=== PATIENT | male | born 1945 | race Caucasian/White ===

== ENCOUNTER 2020-03-25 15:41 | Inpatient (IN) | payer MEDICARE ==
[~2020-03-25] VITALS: Ht 188 cm; Wt 77.3 kg
[~2020-03-25 15:41] MED LIST: NEW ENERGY1 CAP PO; NO HOME MEDICATIONS
[2020-03-25 16:11] LABS: BASO % 0.2 % (0.0-2.0); EOS % 0.3 % (0-4.0); GRAN % 84.2 % (42.2-75.2); HEMATOCRIT 49.9 % (42.0-52.0); HEMOGLOBIN 16.1 g/dl (13.5-18.0); LYMPH # 1.3 (1.2-3.4); LYMPH % 8.2 % (20.0-51.0); MEAN CELL VOLUME 91 fl (80.0-100.0); MEAN CORPUSCULAR HEMOGLOBIN 29 pg (27.0-31.0); MEAN CORPUSCULAR HGB CONC 32 g/dl (33.0-37.0); MEAN PLATELET VOLUME 11.9 fl (7.4-10.4); MONO % 6.6 % (1.7-9.3); PLATELET COUNT 284 K/mm3 (130-400); REDCELL DISTRIBUTION WIDTH-CV 13.7 % (11.5-14.5)
[2020-03-25 16:39] LABS: ALBUMIN 4.4 gm/dL (3.5-5.0); BILIRUBIN,TOTAL 0.8 mg/dL (0.0-1.0); CALCIUM 10.1 mg/dL (8.4-10.2); CREATININE, serum 1.26 (0.66-1.25); POTASSIUM 4.6 mmol/L (3.4-5.0); TOTAL PROTEIN 8.6 gm/dL (6.4-8.2)
[2020-03-25 18:31] LABS: COLLECTION METHOD CLEAN CATCH
[2020-03-25 18:39] LABS: MUCOUS Present /lpf; PH 5 (5-8); SQUAMOUS EPITHELIAL 0-2 /hpf; URINE APPEARANCE Cloudy; URINE BACTERIA Rare /hpf; URINE BILIRUBIN Negative (NEGATIVE); URINE BLOOD 2+ (NEGATIVE); URINE COLOR Yellow; URINE GLUCOSE Negative (NEGATIVE); URINE KETONE 1+ (NEGATIVE); URINE LEUKOCYTE ESTERASE 2+ (NEGATIVE); URINE NITRATE Positive (NEGATIVE); URINE PROTEIN(semi-quant) 1+ (NEGATIVE); URINE UROBILINOGEN Negative (NEGATIVE)
[2020-03-25 20:15] LABS: INR 1.1 (0.8-3.0); PROTHROMBIN TIME 12.1 SECONDS (9.7-12.8)
--- NOTE | 2020-03-25 20:34 | NUR ---
RECEIVED REPORT FROM ED NURSELATOYA. WAITING FOR ROOM 344 TO BE CLEANED FOR PATIENT TO BE ADMIT TO ROOM.
--- NOTE | 2020-03-25 21:37 | NUR ---
RECEIVED PATIENT TO ROOM 344 VIA ED CART WITH ED PCT ACCOMPANYING PATIENT. PATIENT TRANSFERED FROM CART TO HOSP BED, TOLERATED TRANSFER WITH NO COMPLAINTS OF PAIN. DENIES CHEST PAIN/SHORTNESS OF BREATH AT THIS TIME. REPORT PAIN TO LEFT HIP IN ER, OBSERVED ABRASION WITH FLUID FILLED BLISTER TO LEFT INNER KNEE, PINK DISCOLORING TO R CONFUCIANIST AREA,
[2020-03-25 21:45] VITALS: BP 146/81; PULSE 89; TEMP 97.8
[2020-03-26 00:24] VITALS: BP 125/50; PULSE 92; TEMP 97.3
--- NOTE | 2020-03-26 01:24 | NUR ---
Patient alert and partially oriented. Patient c/o pain 3-4 out of 10 to his left hip and left knee area. PRN Morphine given at 22:40 pm. Campoverde catheter in place and draining dark tea color cloudy urine. Oriented patient to the room. Bed alarms on, Call light within reach. Patient denies any needs at this time.
[2020-03-26 04:54] VITALS: BP 117/56; PULSE 90; TEMP 97.6
--- NOTE | 2020-03-26 06:11 | NUR ---
Patient slept well over the night. No acute distress noted. Patient reports left hip and left knee pain 3/10 this morning. Denies need for pain meds at this time. IVF infusing well. Campoverde catheter draining yellow urine. Call light within reach. Will give report to day shift nurse.
[2020-03-26 07:08] VITALS: BP 128/69; PULSE 90; TEMP 98
[2020-03-26 07:10] LABS: BASO % 0.3 % (0.0-2.0); EOS # 0.1 (0.0-0.7); EOS % 0.5 % (0-4.0); GRAN # 8.5 (1.4-6.5); GRAN % 74.8 % (42.2-75.2); HEMATOCRIT 38.1 % (42.0-52.0); LYMPH # 1.5 (1.2-3.4); MEAN CELL VOLUME 89 fl (80.0-100.0); MEAN CORPUSCULAR HEMOGLOBIN 29 pg (27.0-31.0); MEAN CORPUSCULAR HGB CONC 33 g/dl (33.0-37.0); MEAN PLATELET VOLUME 12.6 fl (7.4-10.4); MONO # 1.3 (0.1-0.6); PLATELET COUNT 208 K/mm3 (130-400); RED BLOOD COUNT 4.29 M/mm3 (4.20-5.60); REDCELL DISTRIBUTION WIDTH-CV 13.8 % (11.5-14.5)
[2020-03-26 07:22] LABS: ALBUMIN 3.1 gm/dL (3.5-5.0); BILIRUBIN,TOTAL 0.6 mg/dL (0.0-1.0); CALCIUM 8.2 mg/dL (8.4-10.2); CREATININE, serum 1.08 (0.66-1.25); POTASSIUM 4.1 mmol/L (3.4-5.0); TOTAL PROTEIN 6.1 gm/dL (6.4-8.2)
[2020-03-26 07:30] LABS: HEMOGLOBIN 12.5 g/dl (13.5-18.0)
--- NOTE | 2020-03-26 11:08 | NUR ---
JOSE staffed with the patient RN. The patient reports that it would be better to contact the patient's daughter for intake. JOSE then contacted the patient's daughter, Ilsa (ph#[phone]), to discuss discharge plan. Ilsa lives in [place]. The patient lives alone in [place]. lIsa reports that the patient has a cane and walker, but that he refuses to use them. EMR lists the patient's PCP as Dr. Dwayne Concepcion and that he receives his medications from [facility]. Ilsa reports that the patient is extremely resistant to go doctor appointments and that it has been a long time since he has seen his PCP. Ilsa reports that the patient does not have a DPOA-HC. She states that he is not and has four children: Ilsa, Saadia (ph#[phone], [place]), Jason ([place] and Chris ([place]). Ilsa states that Saadia is on her way to [place] and should arrive tomorrow. The patient has a left hip fracture and is to have surgery tomorrow. JOSE informed Ilsa how post-acute rehab will be recommended upon discharge. Ilsa verbalized understanding and was in agreement to rehab. JOSE informed her of the facilities in [place]. Ilsa was agreeable for JOSE to send referrals to the [place] facilities. She would like to contact them first and have her sister check them out before making a decision on preference. JOSE provided Ilsa with the phone numbers to the [place] facilities. JOSE contacted and faxed a referral to [facility], [facility], and [facility]. Awaiting screens.
--- NOTE | 2020-03-26 11:47 | NUR ---
Betty, at [facility], reports that they are able to accept the patient.
[2020-03-26 11:56] VITALS: BP 113/60; PULSE 82; TEMP 97.8
[2020-03-26 16:59] VITALS: BP 129/62; PULSE 80; TEMP 98.6
[2020-03-26 20:15] VITALS: BP 124/55; PULSE 75; TEMP 97.5
--- NOTE | 2020-03-26 21:00 | NUR ---
PT IN BED, WATCHING TV. DENIES PAIN ONLY WITH MOVEMENT. IS TO BE NPO AFTER MIDNIGHT FOR SURGERY 03/27/20. HAS IVF INFUSING TO LEFT HAND WITHOUT REDNESS OR SWELLING. METZGER CATHETER TO BSD WITH CLOUDY URINE. WILL MONITOR FOR CHANGES.
[2020-03-27] VITALS (10 sets, daily range): BP systolic 126–152; BP diastolic 42–66; PULSE 76–90; TEMP 97.9–98.4
[2020-03-27 07:11] LABS: BASO % 0.4 % (0.0-2.0); EOS # 0.2 (0.0-0.7); EOS % 2.3 % (0-4.0); GRAN # 7.2 (1.4-6.5); GRAN % 71.7 % (42.2-75.2); HEMOGLOBIN 11.1 g/dl (13.5-18.0); LYMPH # 1.5 (1.2-3.4); LYMPH % 14.6 % (20.0-51.0); MEAN CELL VOLUME 93 fl (80.0-100.0); MEAN CORPUSCULAR HEMOGLOBIN 29 pg (27.0-31.0); MEAN CORPUSCULAR HGB CONC 32 g/dl (33.0-37.0); MEAN PLATELET VOLUME 12.2 fl (7.4-10.4); MONO % 10.2 % (1.7-9.3); PLATELET COUNT 155 K/mm3 (130-400); RED BLOOD COUNT 3.78 M/mm3 (4.20-5.60); REDCELL DISTRIBUTION WIDTH-CV 13.8 % (11.5-14.5)
[2020-03-27 07:13] LABS: HEMATOCRIT 35.1 % (42.0-52.0)
[2020-03-27 07:22] LABS: CALCIUM 7.9 mg/dL (8.4-10.2); CREATININE, serum 0.87 (0.66-1.25); POTASSIUM 3.8 mmol/L (3.4-5.0)
--- NOTE | 2020-03-27 08:45 | NUR ---
MORNING SHIFT ASSESSMENT COMPLETED. PATIENT DENIES PAIN AT THIS TIME. STUDENT NURSE GIVING BED BATH, PRE-OP SCRUB AND CATHETER CARE. CALL LIGHT WITHIN REACH. NO OTHER NEEDS AT THIS TIME. PATIENT NPO FOR SURGERY.
--- NOTE | 2020-03-27 09:45 | NUR ---
Cassius, at [facility], reports that they are able to accept the patient.
--- NOTE | 2020-03-27 10:05 | NUR ---
THIS NURSE SPOKE WITH PATIENTS DAUGHTER KEITH REGARDING THE PATIENTS PROVEDURE HE IS HAVING TODAY. DAUGHTER HAD SOME ADDITIONAL QUESTIONS THAT NURSING STAFF WAS UNABLE TO ANSWER. CALLED AND NOTIFIED AND GIVEN DAUGHTERS NUMBER.
--- NOTE | 2020-03-27 10:16 | NUR ---
DOUBLE NURSE PHONE CONSENT OBTAINED BY THIS NURSE AND MEKHI DAY FROM PATIENTS DAUGHTER KEITH FAY FOR LEFT HIP HEMIARTHROPLASTY. CONSENT FORM PLACED ON PATIENTS CHART.
--- NOTE | 2020-03-27 13:20 | NUR ---
PATIENT TAKEN BY MISAEL TO [facility]. WILL WAIT FOR PATIENT ARRIVAL BACK TO ROOM 344 POST-OP.
--- NOTE | 2020-03-27 14:47 | NUR ---
JOSE staffed with the hospitalist. The patient is having surgery today and if he is doing well, he could be able to d/c on Monday. JOSE notified and faxed updates to [facility], and [facility]. JOSE contacted and updated the patient's daughter, Ilsa, of tentative d/c date and of [facility] acceptance. Ilsa reports that she will update her siblings and talk to them to see who their preference is. She reports that her sister, Saadia, got delayed in [place] and will be flying into [facility]. She will arrive in [place] tomorrow. JOSE informed the hospitalist that a new COVID test will need to be ordered. JOSE to continue to follow.
--- NOTE | 2020-03-27 16:45 | NUR ---
PATIENT ARRIVED BACK TO ROOM 344 VIA BED POST-OP FROM PACU. PATIENT SETTELED INTO ROOM. PATIENT AWAKE BUT DROWSY. LEFT HIP AQUACEL CD&I. LEFT MEDIAL KNEE BLISTER COVERED WITH XEROFORM, GAUZE AND TEGADERM, DRESSING IS CD&I. POSITIVE PEDAL PULSES EQUAL BILATERALLY. MUSTAPHA HOSE AND SCD'S TO BLE. ABDUCTOR PILLOW IN PLACE BETWEEN KNEES. POST-OP VSS. WILL CONTINUE TO MONITOR.
--- NOTE | 2020-03-27 19:05 | NUR ---
PATIENT ASLEEP RESTING IN BED. POST-OP VSS. BEDSIDE REPORT GIVEN TO MEKHI BHAKTA.
--- NOTE | 2020-03-27 21:30 | NUR ---
Pt. laying in bed at this time. Pt. is a&OX3, assessment complete. Pt. denies pain or other needs. Dressing to lt. hip CDI. Call light within reach.
[2020-03-28] VITALS (7 sets, daily range): BP systolic 108–136; BP diastolic 48–66; PULSE 63–90; TEMP 97–98.6
--- NOTE | 2020-03-28 07:02 | NUR ---
Lying in bed with eyes open. Alert, oriented only to self. Denies pain. Bruising noted to bialt arms. Aquacel CDI to left hip. Campoverde to dependent drainage with clear yellow urine. Patient says that he is hungry. JAIR Gonzales, in and assists patient in ordering breakfast. Denies additional needs.
[2020-03-28 07:59] LABS: BASO # 0.1 (0.0-0.2); BASO % 0.4 % (0.0-2.0); EOS # 0.1 (0.0-0.7); GRAN # 9.9 (1.4-6.5); GRAN % 79.7 % (42.2-75.2); HEMOGLOBIN 10.2 g/dl (13.5-18.0); MEAN CELL VOLUME 92 fl (80.0-100.0); MEAN CORPUSCULAR HEMOGLOBIN 30 pg (27.0-31.0); MEAN CORPUSCULAR HGB CONC 32 g/dl (33.0-37.0); MEAN PLATELET VOLUME 11.4 fl (7.4-10.4); MONO # 1.3 (0.1-0.6); MONO % 10.2 % (1.7-9.3); PLATELET COUNT 162 K/mm3 (130-400); RED BLOOD COUNT 3.44 M/mm3 (4.20-5.60); REDCELL DISTRIBUTION WIDTH-CV 13.5 % (11.5-14.5)
[2020-03-28 08:04] LABS: HEMATOCRIT 31.8 % (42.0-52.0)
[2020-03-28 08:11] LABS: CALCIUM 7.6 mg/dL (8.4-10.2); CREATININE, serum 0.95 (0.66-1.25); POTASSIUM 3.7 mmol/L (3.4-5.0)
--- NOTE | 2020-03-28 08:38 | NUR ---
Patient has some difficulty with swallowing whole pills. Pills crushed and administered with oatmeal. Patient remains sitting up in bed. Denies additional needs.
--- NOTE | 2020-03-28 09:31 | NUR ---
Lying in bed on left side with eyes closed. Respirations even and unlabored. NO signs or symptoms of discomfort noted at this time.
--- NOTE | 2020-03-28 10:36 | NUR ---
Patient lying in bed with eyes open. Explain to the patient that therapy will be coming by to work with him. Provide Tylenol as prescribed. Patient does deny pain. Had to crush pills and mix in applesauce for patient to take. Spoke with GUILLAUME Fisher, regarding swallowing concerns and she places orders at this time.
--- NOTE | 2020-03-28 10:50 | NUR ---
Bed bath provided along with oral care. Patient unable to assist with any. Discuss with the patient that PT will be in to see him in a little bit. Patient denies needs at this time.
--- NOTE | 2020-03-28 12:26 | NUR ---
PT in room to work with the patient. When sitting on edge of bed patient unable to hold self up and requires assistance sitting up. Patient required full assist from PT with transfer from bed to chair, patient did not help with any of transfer. Patient assisted into comfortable position in the chair. Daughter in room with the patient and will assist patient in eating lunch. Patient denies needs at this time.
--- NOTE | 2020-03-28 13:38 | NUR ---
Patient would like to get back in bed to take a nap. Patient assisted from chair to bed with full assist of three. Did not assist in pivoting or standing up. Assisted into comfortable position in the bed. Minimal pain at this time. Ice pack applied to left hip. Denies additional needs. Daughter in room with the patient.
--- NOTE | 2020-03-28 14:52 | NUR ---
Lying in bed with eyes open. Minimal pain. Dressing changed to left hip as there is a small amount of discharge noted. Dressing removed. Site cleaned with saline then dried. Applied new aquacel to site. Patient repositioned in bed. Denies additional needs at this time.
--- NOTE | 2020-03-28 16:05 | NUR ---
SW followed up with patient and family on decision for placement. Daughter Saadia [phone] present during conversation. Patient was okay with SW talking to daughter about decision on placement. Daughter states that she is continuing to be in communication with her siblings about the decision and has not yet decided as of yet, but leaning towards [facility]. Daughter states that she is aware that patient is to have a swallow study on Monday. SW will follow with care team in regards to discharge plan date to follow up with family in regards to what specific facility they have decided. SW will continue to follow.
--- NOTE | 2020-03-28 17:02 | NUR ---
Lying in bed with eyes open. Having minimal pain. Administer Tylenol as prescribed, patient takes crushed in pudding. Allow patient to sit up in bed. Daughter ordering dinner for patient. Patient denies additional needs.
--- NOTE | 2020-03-28 20:00 | NUR ---
Pt. laying in bed. Pt. is alert and oriented to self only. Shift assessment complete. INT to rt. wrist patent. Dressing to lt. hip CDI. Call light within reach.
[2020-03-29 04:12] VITALS: BP 141/62; PULSE 93; TEMP 98.2
--- NOTE | 2020-03-29 06:55 | NUR ---
Patient sitting up in bed and has large amount of projectile vomit. Patient says that he feels better after vomiting and denies nausea. Patient cleaned, bathed, refuses oral care. Up to chair with assist of three, gait unsteady, does not really stand on feet or help pivot. Bed linens changed.
--- NOTE | 2020-03-29 07:23 | NUR ---
Notified GUILLAUME Fisher, of vomiting episodes, hypoactive bowel sounds, and heart rate in 110-120's. She will come see patient.
[2020-03-29 07:40] LABS: BASO % 0.1 % (0.0-2.0); EOS % 0.2 % (0-4.0); GRAN # 12.8 (1.4-6.5); GRAN % 86.6 % (42.2-75.2); HEMOGLOBIN 11.5 g/dl (13.5-18.0); LYMPH # 0.8 (1.2-3.4); LYMPH % 5.7 % (20.0-51.0); MEAN CELL VOLUME 91 fl (80.0-100.0); MEAN CORPUSCULAR HEMOGLOBIN 30 pg (27.0-31.0); MEAN CORPUSCULAR HGB CONC 33 g/dl (33.0-37.0); MEAN PLATELET VOLUME 12.3 fl (7.4-10.4); MONO % 6.9 % (1.7-9.3); PLATELET COUNT 209 K/mm3 (130-400); RED BLOOD COUNT 3.83 M/mm3 (4.20-5.60); REDCELL DISTRIBUTION WIDTH-CV 13.6 % (11.5-14.5)
[2020-03-29 07:41] LABS: HEMATOCRIT 34.8 % (42.0-52.0)
[2020-03-29 07:43] VITALS: BP 127/69; PULSE 121; TEMP 97.2
[2020-03-29 07:44] LABS: CALCIUM 8.7 mg/dL (8.4-10.2); CREATININE, serum 1.06 (0.66-1.25); POTASSIUM 3.7 mmol/L (3.4-5.0)
--- NOTE | 2020-03-29 08:13 | NUR ---
Ilsa, patient daughter, provided with patient update and plan of care at this time.
--- NOTE | 2020-03-29 08:46 | NUR ---
Patient sitting up in bed with eyes open. Alert, oriented to self and month. Patient not sure where he is at or what the year is. Oriented patient to where he is at, what happened, and the current plan. Denies pain at this time. Aquacel dressing to left hip CDI. Bruising noted to left hip and groin area. Bruising noted to bilat arms. Bowel sounds very hypoactive. Patient was given Zofran by previous shift for nausea and vomiting. Patient denies nausea at this time. Provided Sprite per patient request. Patient denies additional needs at this time.
--- NOTE | 2020-03-29 08:54 | NUR ---
Spoke with chris Lima, and she says that patient anticoagulant can be changed from aspirin to either Lovenox or Heparin, whichever hospitalist prefers. Spoke with Natalia and she will place orders.
--- NOTE | 2020-03-29 08:57 | NUR ---
Previous IV in right forearm was dc'd as patient vomited on site this a.m. New IV site to left forearm started by joanne Florescasting house laborer. Pharmacy contacted to bring IV phenergan.
--- NOTE | 2020-03-29 09:30 | NUR ---
Patient assisted back into bed by PT. Required full assist of two therapists, patient still unable to stand on feet and help pivot. Patient assisted into comfortable position in bed. Administer phenergan IV as prescribed at this time. Patient denies additional needs at this time.
--- NOTE | 2020-03-29 10:15 | NUR ---
Patient lying in bed with eyes closed. HOB elevated approx 60 degrees. Respirations even and unlabored. No signs or symptoms of discomfort noted at this time.
--- NOTE | 2020-03-29 11:23 | NUR ---
Patient lying in bed with eyes closed. Respirations even and unlabored. NO signs or symptoms of discomfort noted at this time.
[2020-03-29 11:57] VITALS: BP 112/63; PULSE 109; TEMP 97.3
--- NOTE | 2020-03-29 12:08 | NUR ---
Continues to rest in bed with eyes closed, respirations even and unlabored. Does awaken for vitals, denies pain, but falls back asleep. NS at 75mL/hr as ordered. Verbal orders from GUILLAUME Fisher, to hold off today on removing zhao.
--- NOTE | 2020-03-29 12:37 | NUR ---
Patient will not discharge today 03/29. Patient has a swallow study scheduled for 03/30. In addition, patient is now being evaluated for a bowel obstruction that resulted in projectile vomiting. Social work will continue to follow as needs progress.
--- NOTE | 2020-03-29 12:44 | NUR ---
Patient's daughter, Priya, here. GUILLAUME Fisher, in and talks with daughter. This nurse in room as well. Patient will wake when name called out but goes back to sleep. Daughter denies needs or concerns at this time.
--- NOTE | 2020-03-29 14:54 | NUR ---
Patient sitting up in bed, eyes open. Denies pain. Patient does not remember getting sick this morning. Denies nausea or upset stomach at this time. Daughter in room with the patient. Patient does not voice needs at this time.
[2020-03-29 15:16] VITALS: BP 103/77; PULSE 118; TEMP 98.1
--- NOTE | 2020-03-29 15:19 | NUR ---
Patient off and on awake. Denies pain when asked. SpO2 88-90%, will apply oxygen at 2L/NC. Daughter in room with the patient. Denies needs.
--- NOTE | 2020-03-29 15:29 | NUR ---
Encourage patient to cough and deep breathe at least ten times when awake to help keep lungs clear. Patient unable to do incentive spirometer. Daughter in room with the patient and will also continue to encourage the patient to cough and deep breathe. Mouth swabs provided to moisten mouth. Dr. Ratliff updated as well.
--- NOTE | 2020-03-29 17:25 | NUR ---
Spoke with the patient and his daughter, Priya, about xray results and that I will let Dr. Ratliff know report is in and see if he can come talk to them further. Patient is awake, will occasionally answer questions but most times he does not answer. Spoke with Dr. Ratliff and he will come talk with the patient and daughter more.
--- NOTE | 2020-03-29 18:09 | NUR ---
Dr. Ratliff was in to talk with the patient and daughter. Orders were placed by Dr. Ratliff. Patient having some pain in left hip, will administer Morphine as prescribed, daughter prefers the lowest dose possible. Patient was repositioned in bed. Denies additional needs at this time.
--- NOTE | 2020-03-29 18:36 | NUR ---
Lying in bed with eyes open. Daughter says that he has been resting in bed with eyes shut but he just opened his eyes when she got up as she is leaving for the night. Ask patient if his pain is better but patient does not answer. No grimacing, moaning, or tenseness noted. Daughter tells patient that she is leaving and that she loves him and patient responds back with "Love you". Voices no further needs at this time.
[2020-03-29 19:56] VITALS: BP 114/59; PULSE 105; TEMP 98
--- NOTE | 2020-03-29 20:14 | NUR ---
PT IN BED WITH HOB AT 45 DEGREE ANGLE, AWAKE AND NON-VERBAL AT THIS TIME. PT ANSWERS QUESTIONS BY NODDING YES OR NO. PT WHEN ASKED DID NOT ANSWER NAME OF DATE OF . PT APPEARED TO THINK ABOUT IT AND SAID NOTHING. PT DENIED PAIN OR DISCOMFORT. PT HAS CALL LIGHT WITHIN REACH, BED ALARM ON, AND CLOSE TO NURSES' STATION.
--- NOTE | 2020-03-30 00:05 | NUR ---
PT ONLY SHOWED 60Ml SINCE START OF SHIFT. ONCE AWAKENED PT HAD A TOTAL OF 175Ml IN METZGER. BLADDER SCANNED AND SHOWED ONLY 3Ml IN BLADDER. WILL CONTINUE TO MONITOR THE PT.
[2020-03-30 01:43] VITALS: BP 131/60; PULSE 97; TEMP 98.4
[2020-03-30 04:15] VITALS: BP 134/60; PULSE 98; TEMP 98.4
--- NOTE | 2020-03-30 06:38 | NUR ---
PT HAD BEEN NON-VERBAL ALL NIGHT, BUT HE DID COMMUNICATE BY NODDING YES AND NO TO QUESTIONS ASKED. PT'S URINE OUTPUT SEEM TO PICK-UP CLOSER TO THE END OF THIS SHIFT. PT REPOSITIONED DURING THE NIGHT, AND ICE KEPT ON LEFT THIGH AT SURGICAL SITE. CALL LIGHT WITHIN REACH AND BED ALARM ON.
[2020-03-30 06:42] LABS: MEAN CELL VOLUME 91 fl (80.0-100.0); MEAN CORPUSCULAR HGB CONC 32 g/dl (33.0-37.0); MEAN PLATELET VOLUME 12.1 fl (7.4-10.4); PLATELET COUNT 225 K/mm3 (130-400); RED BLOOD COUNT 3.29 M/mm3 (4.20-5.60); REDCELL DISTRIBUTION WIDTH-CV 13.8 % (11.5-14.5)
[2020-03-30 06:43] LABS: CALCIUM 7.9 mg/dL (8.4-10.2); CREATININE, serum 1.18 (0.66-1.25); POTASSIUM 4.1 mmol/L (3.4-5.0)
--- NOTE | 2020-03-30 06:43 | NUR ---
Lying in bed with eyes closed. Respirations even and unlabored. No signs or symptoms of discomfort noted. Will open eyes and look at you but goes back to sleep. Oxygen on at 1L/NC. Lung sounds clear. Bowel sounds hypoactive in all quads. Aquacel to left hip CDI. Campoverde to dependent drainage with clear yellow urine noted in tubing and bag.
[2020-03-30 07:33] LABS: HEMATOCRIT 29.9 % (42.0-52.0); HEMOGLOBIN 9.5 g/dl (13.5-18.0); MEAN CORPUSCULAR HEMOGLOBIN 29 pg (27.0-31.0)
[2020-03-30 08:00] VITALS: BP 131/62; PULSE 103; TEMP 97.3
--- NOTE | 2020-03-30 08:47 | NUR ---
Spoke with Alyssia in speech therapy and she is aware of referral and they will come work with the patient today, not sure on exact time at this time.
[2020-03-30 08:57] LABS: BAND 10 % (0-10); LYMPHOCYTE 12 % (20.0-51.0); NEUTROPHILS 68 % (42.0-75.2); PLATELET ESTIMATE NORMAL (NORMAL)
--- NOTE | 2020-03-30 09:04 | NUR ---
Reposition patient. Patient has a stage 1 pressure ulcer to right buttocks, mepilex applied to area. PT in room to work with the patient. They will let staff know when they are done so patient can be repositioned to left side.
--- NOTE | 2020-03-30 09:34 | NUR ---
Bed bath, shampoo, and oral care provided. Patient able to talk more at this time. Feels a little better than yesterday. Denies pain. Encourage patient to cough and deep breathe to try to open up lungs. OT in room to work with the patient. They will let us know when they are done so we can reposition patient to left side.
--- NOTE | 2020-03-30 09:45 | NUR ---
Speech therapy in room to work with the patient. Will reposition patient after speech is done assessing patient.
--- NOTE | 2020-03-30 09:51 | NUR ---
Contacted Don with RT to see if there is any therapies that can be done to help loosen respiratory secretions. Don will come assess the patient. Oxygen was removed to assess SpO2 on room air. Patient SpO2 in the 80's. RT in room at this time. Oxygen applied at 5L/NC to get patient levels back up. RT assesses patient and does deep yankauer suctioning in patient throat. Patient SpO2 increases to 94%. RT wants to keep patient on the 5L/NC at this time and will come back to reassess patient. Speech should be returning to work with the patient.
--- NOTE | 2020-03-30 10:08 | NUR ---
SX AIRWAY VIA YANKAURER X 3 TO STIMULATE PATIENT TO COUGH UP SECRETIONS AND IMPROVE OXYGEN SPO2. PATIJENT PREVIOUSLY ON 2LPM. NOW ON 2LPM, SPO2 ON RA 82% AFTER SX MODERATE AMOUNT OF WHITE THICH SECRETIONS ANS PATIENT COUGHING ON OWN, WITH NC ON 4 LPM, SPO2 94%. WILL CONTINUE TO MONITOR.
--- NOTE | 2020-03-30 10:23 | NUR ---
Speech therapy has not returned to work with the patient. Patient repositioned to left side. Patient asks to lay back a little bit as this was most comfortable for him. Denies additional needs at this time.
[2020-03-30 11:14] VITALS: BP 131/57; PULSE 102; TEMP 98.2
--- NOTE | 2020-03-30 11:55 | NUR ---
Speech therapy going into room to work with the patient.
--- NOTE | 2020-03-30 13:38 | NUR ---
Patient to radiology via cart for swallow study.
--- NOTE | 2020-03-30 14:35 | NUR ---
Patient back to room from radiology. Transferred from cart to bed with assist of two staff. Patient repositioned in bed to right side into comfortable position. Daughter in room at bedside. Patient and daughter deny additional needs at this time.
--- NOTE | 2020-03-30 15:38 | NUR ---
JOSE staffed with the hospitalist. The patient may be able to d/c in a day or two. He is to have a swallow study today. JOSE notified and faxed updates to [facility], and [facility].
[2020-03-30 15:59] VITALS: BP 133/55; PULSE 92; TEMP 98.6
--- NOTE | 2020-03-30 17:36 | NUR ---
Patient lying in bed with eyes closed. Respirations even and unlabored, patient is snoring. Daughter in room. Dr. Landon in and talks with daughter.
--- NOTE | 2020-03-30 17:54 | NUR ---
MRI returns call and is unable to perform brain MRI today. They will plan to perform MRI tomorrow, tentatively around 11:15, patient does not need to be NPO. Dr. Landon still in room talking with the patient's daughter.
--- NOTE | 2020-03-30 18:18 | NUR ---
Patient repositioned in bed to be on back, HOB elevated to 90 degrees so that he can eat. Daughter, Priya, in room and she says that she is comfortable assisting patient in eating. Reviewed honey thick liquids with Priya. Patient has eyes open, does say a few words. Patient says that he does not really have an appetite but will try to eat some. Denies additional needs at this time.
[2020-03-30 18:38] LABS: HEMATOCRIT 26.9 % (42.0-52.0); HEMOGLOBIN 8.6 g/dl (13.5-18.0)
[2020-03-30 19:42] VITALS: BP 121/53; PULSE 101; TEMP 98.6
--- NOTE | 2020-03-30 20:00 | NUR ---
PAtient resting in bed eating his dinner. Daughter is at bedside. Patient is on pureed diet with honey thick liquids. PAtient is on 5 L via NC. Aquacell to left hip clean, dry, and intact. NS infusing at 75 ml/hr. Campoverde draining yellow urine. PAtient is alert and oriented to himself and place. Call light is in reach.
[2020-03-31] VITALS (7 sets, daily range): BP systolic 107–139; BP diastolic 51–70; PULSE 81–106; TEMP 97.3–98.1
[2020-03-31 07:21] LABS: BASO % 0.1 % (0.0-2.0); EOS % 0.2 % (0-4.0); GRAN # 8.1 (1.4-6.5); GRAN % 75.7 % (42.2-75.2); LYMPH % 9.4 % (20.0-51.0); MEAN CELL VOLUME 93 fl (80.0-100.0); MEAN CORPUSCULAR HGB CONC 32 g/dl (33.0-37.0); MONO # 1.3 (0.1-0.6); MONO % 12.4 % (1.7-9.3); PLATELET COUNT 231 K/mm3 (130-400); RED BLOOD COUNT 2.67 M/mm3 (4.20-5.60); REDCELL DISTRIBUTION WIDTH-CV 14.3 % (11.5-14.5)
[2020-03-31 07:22] LABS: HEMATOCRIT 24.8 % (42.0-52.0); HEMOGLOBIN 7.8 g/dl (13.5-18.0); MEAN CORPUSCULAR HEMOGLOBIN 29 pg (27.0-31.0)
[2020-03-31 07:25] LABS: CALCIUM 7.7 mg/dL (8.4-10.2); CREATININE, serum 1.08 (0.66-1.25); POTASSIUM 3.7 mmol/L (3.4-5.0)
--- NOTE | 2020-03-31 08:00 | NUR ---
PATIENT IS DROWSY BUT ARROUSES EASILY TO VERBAL STIMULI. PATIENT ORIENTED X3. VSS. DENIES PAIN IN LEFT HIP AT REST. LEFT HIP DRESSING IS CD&I WITH AQUACEL AND ICE PACK INPLACE. TEDS & SCD'S TO BLE. POSITIVE PEDAL PULSES TO BLE. METZGER TO DD WITH LIANG COLORED URINE WITH SEDIMENT NOTED. PATIENT IS GETTING IV ABX FOR UTI. PATIENT DENIES MUCH APPETITE THIS AM AND DOESN'T SEEMS TO LIKE PUREE DIET & HONEY THICK LIQUIDS. HOME MEDS ON HOLD AT THIS TIME. PT/OT/ST CONSULTED. NO C/O N/V. IV FLUIDS INFUSING VIA PUMP INTO LEFT FORARM IV. HEAD TO TOE ASSESSMENT COMPLETE. NOTED REDDENDED BOTTOM, ENCOURAGING ACTIVITY AND TURNING. NO OTHER NEEDS AT THIS TIME. CALL LIGHT IN REACH. PATIENT SLEEPING. BED ALARM ON.
--- NOTE | 2020-03-31 08:50 | NUR ---
PATIENT IS IN THE UPPER 90'S ON 5L PER NC. TURNED O2 DOWN TO 3L WITH SATS AT 92%. PATIENT SITTING UP IN BED. ANSWERING QUESTIONS APPROPRIATELY. ST AT BEDSIDE. WILL MONITOR.
--- NOTE | 2020-03-31 09:00 | NUR ---
HOSPITALIST TEAM ROUNDING, SEE ORDERS.
--- NOTE | 2020-03-31 10:30 | NUR ---
RADIOLOGY AT BEDSIDE TO OBTAIN CXR.
--- NOTE | 2020-03-31 13:30 | NUR ---
DAUGHTER AT BEDSIDE ASKING CHARGE NURSE AND ANOTHER FLOOR NURSE ABOUT HAVING AN MRI AND NOT THE CT. BOTH NURSES CONFIRMED ORDER HAS BEEN CHANGED TO CT DUE TO PREVIOUS LEFT HIP HEMIARTHROPLASTY ON 03/27/20. ROUNDED AND TOLD DAUGHTER SHE WOULD "OKAY" THE MRI. RADIOLOGY NOTIFIED, AND RESPONDED THAT DOING THE MRI WITHIN 6 WEEKS POST OP HIP SURGERY WAS AGAINST PROTOCOL AND CT IMAGING WAS THE PREFERED IMAGING. HOSPITALIST, WHO ORDERED THE MRI, AGREED AND CHANGED ORDER TO CT. CT NOTIFIED.
--- NOTE | 2020-03-31 14:00 | NUR ---
DAUGHTER IS CONTINUOUSLY TALKING TO ANY HOSPITAL STAFF WHO ENTER THE ROOM INCLUDING HOUSE KEEPING ABOUT WANTING AN MRI. STAFF ALL DEFER TO NURSING. DAUGHTER SEEMS TO BE UNSATISFIED, EVEN AFTER BEING EDUCATED ABOUT RISKS AND BENEFITS.
--- NOTE | 2020-03-31 14:19 | NUR ---
The patient's oxygen needs increased last night. JOSE met with the patient and his daughter, Saadia, to follow up on preference. Saadia reports that they have not made a decision yet. She would be interested in a tour or virtual tour if able. The hospitalist entered the room for rounds during follow up. JOSE contacted and faxed updates to [employer], [employer], and [employer] and notified them of the daughter's interest in a tour.
--- NOTE | 2020-03-31 15:00 | NUR ---
[employer] EXTRACTOR AND FLIGHT CREW SCHEDULER NOTIFED OF THE PATIENT'S DAUGHTER ACTIVELY PUSHING FOR MRI. DAUGHTER KEEPS COMING OUT TO THE NURSING STATION TO ASK QUESTIONS. DAUGHTER ASKED TO PLEASE USE CALL LIGHT.
--- NOTE | 2020-03-31 16:15 | NUR ---
PATIENT BACK FROM CT
--- NOTE | 2020-03-31 16:55 | NUR ---
DAUGHTER TALKING WITH NURSING AT BEDSIDE AND AGAIN, PUSHING FOR MRI. NURSING EDUCATED ABOUT THE IMAGING RESULTS FROM CT. PATIENT'S DAUGHTER STILL ADAMANT ABOUT AN MRI, STATING NEEDS IT TO EVALUATE HIS BALANCE. PATIENT'S DAUGHTER IS TELLING NURSING THAT HER SISTER IS A DOCTOR, A UROLOGIST AND IS UPSET THAT WE ARE NOT DOING THE MRI. NURSING DEFFERED TO RADIOLOGIST AND HOSPITALIST. HAS ALREADY WENT AND VISITED ABOUT THIS ISSUE THIS AFTERNOON, AFTER MAKING ROUNDS THIS AM WHEN DAUGHTER WASN'T HERE. DAUGHTER ACTS LIKE THIS CONVERSATION HARDLY HAPPENED AND NEEDS TO TALK WITH THE DOCTORS AGAIN AND/OR WOULD LIKE TO USE ANOTHER RADIOLOGY DEPARTMENT TO COMPLETE THE MRI. NURSING EXPLAINED OUR ORGANIZATION ONLY HAS ONE RADIOLOGY DEPARMENT UNLESS SHE WAS TALKING ABOUT OUTPATIENT. DAUGHTER CLARIFING SHE WANTS THIS DONE INPATIENT. NURSING AGAIN REFFERED TO RADIOLOGY AND HOSPITALIST.
[2020-03-31 21:50] LABS: HEMATOCRIT 24.6 % (42.0-52.0); HEMOGLOBIN 7.8 g/dl (13.5-18.0)
--- NOTE | 2020-04-01 19:45 | NUR ---
Pt. sitting up in bed at this time. Pt. is alert to self and daughter. Shift assessment complete. no IV access at this time. Dressing to lt. hip CDI. Pt. denies further needs, call light within reach.
[2020-04-01 20:00] VITALS: BP 116/63; PULSE 92; TEMP 98.6
[2020-04-02] VITALS: BP 128/55; PULSE 94; TEMP 98.4
[2020-04-02 04:00] VITALS: BP 119/65; PULSE 85; TEMP 98.1
[2020-04-02 06:45] LABS: MEAN CELL VOLUME 90 fl (80.0-100.0); MEAN CORPUSCULAR HGB CONC 32 g/dl (33.0-37.0); MEAN PLATELET VOLUME 11.4 fl (7.4-10.4); RED BLOOD COUNT 2.76 M/mm3 (4.20-5.60); REDCELL DISTRIBUTION WIDTH-CV 14.6 % (11.5-14.5)
[2020-04-02 06:58] LABS: HEMATOCRIT 24.7 % (42.0-52.0); HEMOGLOBIN 7.8 g/dl (13.5-18.0); MEAN CORPUSCULAR HEMOGLOBIN 28 pg (27.0-31.0)
[2020-04-02 06:59] LABS: PLATELET COUNT 347 K/mm3 (130-400)
--- NOTE | 2020-04-02 07:00 | NUR ---
resting in bed, bedside shift report received from MEKHI Gupta
[2020-04-02 07:05] LABS: CALCIUM 7.6 mg/dL (8.4-10.2); CREATININE, serum 0.96 (0.66-1.25)
[2020-04-02 07:48] LABS: BAND 3 % (0-10); HYPOCHROMIA 2+; LYMPHOCYTE 5 % (20.0-51.0); METAMYELOCYTE 1 % (0-0); NEUTROPHILS 76 % (42.0-75.2); PLATELET ESTIMATE NORMAL (NORMAL)
[2020-04-02 08:00] VITALS: BP 124/57; PULSE 87; TEMP 98.6
--- NOTE | 2020-04-02 08:00 | NUR ---
resting in bed, student nurse in assisting with care,
--- NOTE | 2020-04-02 08:57 | NUR ---
JOSE faxed updates to WING, Brittany, and Sebastien.
[2020-04-02] MEDS ORDERED: DULCOLAX S10 MG/SUPP RC (09:13)
[2020-04-02] MEDS ORDERED: VITAMIN C500 MG PO (09:13)
[2020-04-02] MEDS ORDERED: DUO-KAPS1 CAP PO (09:13)
--- NOTE | 2020-04-02 10:30 | NUR ---
resting in bed and student nurse and BILLIARD TABLE ASSEMBLER in working with patient, full assessment completed with student in attendance, has 6cm dark red/purple area to left heel and allevyn pad in place, right heel without redness and allevyn pad in place, heel protectors also on bilaterally, has 5cm x 1/2cm reddish/purplish area to middle of right buttock and a 1cm skin tear to middle of back, allevyn life pad placed over buttock and replicare to mid back skin tear, has 3 plus pitting edema to upper and lower extremities, aquacel dressing to left hip CD&I,
--- NOTE | 2020-04-02 11:08 | NUR ---
SW attended clinical rounds. The patient is to tentatively d/c today. SW informed the team that a new COVID test would need to be ordered. SW updated the patient's daughter, Saadia. Saadia reports that they have chosen [facility]. JOSE notified and faxed updates to Betty at [facility]. Awaiting COVID results.
--- NOTE | 2020-04-02 12:00 | NUR ---
remains resting in bed, therapy was in earlier and assisted him withexercises in bed
[2020-04-02 12:27] VITALS: BP 134/60; PULSE 94; TEMP 98.3
--- NOTE | 2020-04-02 12:30 | NUR ---
daughter here to visit, brought him a blizzard from and had all of one
--- NOTE | 2020-04-02 13:11 | NUR ---
bedside shift report given to MEKHI Atkinson
--- NOTE | 2020-04-02 13:22 | NUR ---
Received report from MEKHI Jain. Assumed care for Pt.
--- NOTE | 2020-04-02 13:45 | NUR ---
End of clinical day, patient laying in bed resting, no complaints of pain, had daughter in room vising. call light within reach.
[2020-04-02] MEDS ORDERED: OMNICEF 300MG300 MG PO (13:58)
[2020-04-02] MEDS ORDERED: FERROUS GL325 MG/TAB PO (13:58)
[2020-04-02] MEDS ORDERED: ASPI325T6 PO (13:58)
[2020-04-02] MEDS ORDERED: TYLENOL 325MG325 MG PO (13:59)
[2020-04-02] MEDS ORDERED: OSCAL 500 TAB500 MG PO (13:59)
[2020-04-02] MEDS ORDERED: SENEXON-S 50-81 EACH PO (13:59)
[2020-04-02] MEDS ORDERED: KLOR-CON20 MEQ PO (14:00)
[2020-04-02] MEDS ORDERED: NORCO 325 MG-51 TAB PO (14:00)
--- NOTE | 2020-04-02 14:05 | NUR ---
The patient's COVID results came back negative. SW notified and faxed the results to [facility]. Betty, at [facility], reports that they are able to accept the patient. The patient is to discharge today, 04/02, to [facility] for a skilled stay. Transportation was scheduled at 1530, via [facility]. SW informed the patient, his daughter (Saadia), and RN of the time. They were all agreeable to the time. No additional needs at this time.
[2020-04-02 14:52] VITALS: BP 134/60; PULSE 94; TEMP 98.3
[2020-04-02 15:52] LABS: ALBUMIN 2.4 gm/dL (3.5-5.0); BILIRUBIN,TOTAL 0.6 mg/dL (0.0-1.0); CALCIUM 7.7 mg/dL (8.4-10.2); CREATININE, serum 1.04 (0.66-1.25); POTASSIUM 3.4 mmol/L (3.4-5.0); TOTAL PROTEIN 5.4 gm/dL (6.4-8.2)
--- NOTE | 2020-04-02 16:06 | NUR ---
Pt transferred to [facility], Kacie, transferred Pt to [facility] WC, escorted Pt to entrance, Pt left via [facility] transportation. Report called to [facility] receiving nurse.
[2020-04-03 00:03] LABS: HEMATOCRIT 25.5 % (42.0-52.0); MEAN CELL VOLUME 91 fl (80.0-100.0); MEAN CORPUSCULAR HEMOGLOBIN 29 pg (27.0-31.0); MEAN CORPUSCULAR HGB CONC 32 g/dl (33.0-37.0); MEAN PLATELET VOLUME 11.2 fl (7.4-10.4); PLATELET COUNT 294 K/mm3 (130-400); RED BLOOD COUNT 2.76 M/mm3 (4.20-5.60); REDCELL DISTRIBUTION WIDTH-CV 14.4 % (11.5-14.5)
[2020-04-03 00:04] LABS: BAND 1 % (0-10); BASOPHIL 0 % (0-2); EOSINOPHIL 1 % (0-4); LYMPHOCYTE 8 % (20.0-51.0); METAMYELOCYTE 0 % (0-0); MYELOCYTE 0 % (0-0); NEUTROPHILS 80 % (42.0-75.2); NUCLEATED RED BLOOD CELL 0 (0-6); PLATELET ESTIMATE NORMAL (NORMAL); TOXIC GRANULATION PRESENT
== END 2020-04-02 16:08 | DRG 853 ==
LOC: COL.ER 15:41 → SURG 19:04
PROVIDERS: Physician Assistant; Student in an Organized Health Care Education/Training Program; ADMIT Hospitalist
PROC: 0SRS0J9 Replacement of Left Hip Joint, Femoral Surface with Synthetic Substitute, Cemented, Open Approach (ICD-10-PCS; principal; 2020-03-25)
DX: A41.9 Sepsis, unspecified organism (principal); S72.012A Unspecified intracapsular fracture of left femur, initial encounter for closed fracture; J96.01 Acute respiratory failure with hypoxia; J69.0 Pneumonitis due to inhalation of food and vomit; N39.0 Urinary tract infection, site not specified; N17.9 Acute kidney failure, unspecified; M62.82 Rhabdomyolysis; E87.1 Hypo-osmolality and hyponatremia; G91.2 (Idiopathic) normal pressure hydrocephalus; R65.20 Severe sepsis without septic shock; R79.89 Other specified abnormal findings of blood chemistry; E86.0 Dehydration; D64.9 Anemia, unspecified; Z20.822 Contact with and (suspected) exposure to COVID-19; R11.2 Nausea with vomiting, unspecified; R13.10 Dysphagia, unspecified; W19.XXXA Unspecified fall, initial encounter
CPT/HCPCS: 99222-AI; 99232-AI; 99233-AI; 99239; A4314; A9284; C1713; C1776; J0456; J0690; J0696; J1644; J1940; J2250; J2270; J2405; J2550; J2704; J3010; J7030; J7050; J7120

== ENCOUNTER → 2020-05-14 | Outpatient (REF) ==
[~2020-05-14] MED LIST changes: +ASPI325T6 PO; +DULCOLAX S10 MG/SUPP RC; +DUO-KAPS1 CAP PO; +FERROUS GL325 MG/TAB PO; +KLOR-CON20 MEQ PO; +NORCO 325 MG-51 TAB PO; +OMNICEF 300MG300 MG PO; +OSCAL 500 TAB500 MG PO; +SENEXON-S 50-81 EACH PO; +TYLENOL 325MG325 MG PO; +VITAMIN C500 MG PO
[2020-05-14 14:03] LABS: ALBUMIN 2.7 gm/dL (3.5-5.0); BILIRUBIN,TOTAL 0.3 mg/dL (0.0-1.0); CALCIUM 8.4 mg/dL (8.4-10.2); CREATININE, serum 0.71 (0.66-1.25); POTASSIUM 4.3 mmol/L (3.4-5.0); TOTAL PROTEIN 6.9 gm/dL (6.4-8.2)
== END ==
LOC: EDSTATUS 10:36 → ZCOL.LAB 13:44
PROVIDERS: Internal Medicine
DX: S72.002D Fracture of unspecified part of neck of left femur, subsequent encounter for closed fracture with routine healing (principal); J96.00 Acute respiratory failure, unspecified whether with hypoxia or hypercapnia; D64.9 Anemia, unspecified

== ENCOUNTER 2020-06-05 16:16 | Inpatient (IN) | payer MEDICARE ==
[2020-06-05] VITALS (165 sets, daily range): BP systolic 101–120; BP diastolic 49–66; PULSE 65–89; TEMP 97.9–98.2; O2SAT 79–100
[~2020-06-05] VITALS: Ht 188 cm; Wt 79.5 kg
[2020-06-05 17:19] LABS: ALBUMIN 2.8 gm/dL (3.5-5.0); BILIRUBIN,TOTAL 0.4 mg/dL (0.0-1.0); C-REACTIVE PROTEIN 8.2 mg/dL (0.0-0.9); CALCIUM 7.3 mg/dL (8.4-10.2); CREATININE, serum 0.62 (0.66-1.25); POTASSIUM 3.4 mmol/L (3.4-5.0); TOTAL PROTEIN 7.2 gm/dL (6.4-8.2)
[2020-06-05 17:27] LABS: MEAN CELL VOLUME 92 fl (80.0-100.0); MEAN CORPUSCULAR HGB CONC 26 g/dl (33.0-37.0); MEAN PLATELET VOLUME 9.8 fl (7.4-10.4); PLATELET COUNT 202 K/mm3 (130-400); RED BLOOD COUNT 1.61 M/mm3 (4.20-5.60); REDCELL DISTRIBUTION WIDTH-CV 17.8 % (11.5-14.5)
[2020-06-05 17:31] LABS: HEMATOCRIT 14.8 % (42.0-52.0); HEMOGLOBIN 3.9 g/dl (13.5-18.0); MEAN CORPUSCULAR HEMOGLOBIN 24 pg (27.0-31.0)
[2020-06-05 17:45] LABS: ANISOCYTOSIS 2+; EOSINOPHIL 1 % (0-4); LYMPHOCYTE 3 % (20.0-51.0); NEUTROPHILS 96 % (42.0-75.2); PLATELET ESTIMATE NORMAL (NORMAL)
[2020-06-05 17:46] LABS: HYPOCHROMIA 4+
[2020-06-05 18:06] LABS: MAGNESIUM 1.8 mg/dL (1.6-2.3); PHOSPHOROUS 3.2 mg/dL (2.5-4.5)
--- NOTE | 2020-06-05 21:58 | NUR ---
Patient arrivef from the Emergency department around 2229. He was at CT prior but they weren't able to do the CT because he only had 22G IV. The nurse stated they attempted three times to get an IV but wasn't able to, so they brought him to the ICU. I had Marci, Nursing Mental Health Case Manager attempt an IV but she was unsuccessful. Dr Garcia from the ER came and preformed ultrasound assisted IV and was successfully able to place two anticubital IV's, one on each arm. He has LR running at 75 on the right IV and blood on the left AC IV. He denies pain, shortness of breath or chest pain. He normally gets straight cathed in his living assisted facility. I asked him how often, and he said "rarely". He did say he can tell when he has the urge to urinate. I asked if he wanted the straight cath or zhao and he said he would prefer a regular zhao. I spoke to Natalia- Peggy and she said it was a good idea. I informed the patient I was going to insert the zhao and when it was in, he said he wanted me to take it out. I asked if he is sure and he said, "Yes, that is enough, take it out now". Gilles removed and Natalia informed.
[2020-06-06] VITALS (141 sets, daily range): BP systolic 99–113; BP diastolic 54–59; PULSE 78–85; TEMP 98–98.7; O2SAT 68–100
--- NOTE | 2020-06-06 02:51 | NUR ---
Patient had an uneventful visit. The CT was resulted and showed many findings. -See Physician note-. Immediately Hospitalist and Nursing Accounts Executive informed me the patient will be transferred to [facility]. Natalia spoke to the patient about the plan. At 0230 EMS arrived. At 0245 I called Tien GAMING and gave report.
== END 2020-06-06 02:40 | disposition short-term general hospital (02) | DRG 871 ==
LOC: COL.ER 16:16 → ICU 17:35
PROVIDERS: Family Medicine; Physician Assistant; ADMIT Hospitalist
DX: A41.9 Sepsis, unspecified organism (principal); J96.01 Acute respiratory failure with hypoxia; J84.116 Cryptogenic organizing pneumonia; I74.09 Other arterial embolism and thrombosis of abdominal aorta; I74.5 Embolism and thrombosis of iliac artery; R65.20 Severe sepsis without septic shock; G20 Parkinson's disease; J43.9 Emphysema, unspecified; Q99.2 Fragile X chromosome; D64.9 Anemia, unspecified; Z85.47 Personal history of malignant neoplasm of testis; Z79.82 Long term (current) use of aspirin; R62.7 Adult failure to thrive; R33.9 Retention of urine, unspecified; L89.619 Pressure ulcer of right heel, unspecified stage; L89.319 Pressure ulcer of right buttock, unspecified stage; L89.629 Pressure ulcer of left heel, unspecified stage; R91.8 Other nonspecific abnormal finding of lung field; F02.80 Dementia in other diseases classified elsewhere, unspecified severity, without behavioral disturbance, psychotic disturbance, mood disturbance, and anxiety; Z68.21 Body mass index [BMI] 21.0-21.9, adult
CPT/HCPCS: C9113; J2543; J7120; P9016; Q9967